=== PATIENT | female | born 1980 | race Caucasian/White ===

== ENCOUNTER 2020-11-16 14:48 | Emergency (ER) | payer OTHER, MEDICARE ==
[~2020-11-16] VITALS: Ht 170.2 cm; Wt 88.6 kg
[2020-11-16 15:08] VITALS: TEMP 96
[2020-11-16 15:37] LABS: BASO # 0.1 (0.0-0.2); BASO % 0.4 % (0.0-2.0); EOS # 0.1 (0.0-0.7); EOS % 0.6 % (0-4.0); GRAN # 13.4 (1.4-6.5); GRAN % 71.1 % (42.2-75.2); HEMATOCRIT 41.6 % (37.0-47.0); LYMPH % 21.1 % (20.0-51.0); MEAN CELL VOLUME 95 fl (80.0-100.0); MEAN CORPUSCULAR HEMOGLOBIN 34 pg (27.0-31.0); MEAN CORPUSCULAR HGB CONC 36 g/dl (33.0-37.0); MEAN PLATELET VOLUME 9.4 fl (7.4-10.4); MONO # 1.2 (0.1-0.6); MONO % 6.1 % (1.7-9.3); PLATELET COUNT 352 K/mm3 (130-400); RED BLOOD COUNT 4.37 M/mm3 (4.10-5.30); REDCELL DISTRIBUTION WIDTH-CV 13.2 % (11.5-14.5)
[2020-11-16 15:49] LABS: ALANINE AMINOTRANSFERASE 29 U/L (4-34); ALBUMIN 4.6 gm/dL (3.5-5.0); ALKALINE PHOSPHATASE 83 U/L (50-136); ANION GAP 12 mmol/L (7-16); AST,SGOT 33 U/L (15-37); BILIRUBIN,TOTAL 1.4 mg/dL (0.0-1.0); BLOOD UREA NITROGEN 11 mg/dL (7-17); CALCIUM 9.9 mg/dL (8.4-10.2); CARBON DIOXIDE 19 mmol/L (22-30); CHLORIDE 107 mmol/L (98-107); CREATININE, serum 0.69 (0.52-1.25); GLUCOSE 141 mg/dL (74-106); POTASSIUM 3.4 mmol/L (3.4-5.0); SODIUM 138 mmol/L (137-145); TOTAL PROTEIN 7.4 gm/dL (6.4-8.2)
[2020-11-16 15:51] LABS: C-REACTIVE PROTEIN < 0.5 mg/dL (0.0-0.9)
[2020-11-16 16:29] LABS: COLLECTION METHOD CLEAN CATCH
[2020-11-16 16:50] LABS: MUCOUS Present /lpf; PH 6 (5-8); URINE APPEARANCE Cloudy; URINE BACTERIA Rare /hpf; URINE BILIRUBIN Negative (NEGATIVE); URINE BLOOD 3+ (NEGATIVE); URINE COLOR Yellow; URINE GLUCOSE Negative (NEGATIVE); URINE KETONE 1+ (NEGATIVE); URINE LEUKOCYTE ESTERASE Negative (NEGATIVE); URINE NITRATE Negative (NEGATIVE); URINE PROTEIN(semi-quant) 1+ (NEGATIVE); URINE RBC >50 /hpf; URINE UROBILINOGEN Negative (NEGATIVE)
[2020-11-16] MEDS ORDERED: ZOFRAN ODT4 MG PO (17:54)
[2020-11-16] MEDS ORDERED: CEFTIN 250250 MG/TAB PO (17:54)
[2020-11-16 18:03] VITALS: BP 108/48; PULSE 83
== END 2020-11-16 18:07 | disposition home or self-care (01) ==
LOC: COL.ER 14:48
PROVIDERS: Emergency Medicine
DX: N20.0 Calculus of kidney (principal); F17.210 Nicotine dependence, cigarettes, uncomplicated; Z88.8 Allergy status to other drugs, medicaments and biological substances
CPT/HCPCS: J0696; J1170; J1885; J2405; J3010; J7030; Q9967

== ENCOUNTER → 2024-02-18 | Outpatient (CLI) | payer MEDICARE, OTHER ==
[~2024-02-18] MED LIST: CEFTIN 250250 MG/TAB PO; ZOFRAN ODT4 MG PO
== END ==
LOC: COL.RAD 13:21
DX: M50.322 Other cervical disc degeneration at C5-C6 level (principal); M40.50 Lordosis, unspecified, site unspecified

== ENCOUNTER 2024-07-23 22:27 | Emergency (ER) | payer MEDICARE, OTHER ==
[~2024-07-23] VITALS: Ht 170.2 cm; Wt 70.5 kg
[2024-07-23] MEDS ORDERED: Acetaminophen 500 MG TAB PO ONE (22:45)
[2024-07-23] MEDS ORDERED: LR 1,000 ML IV ONE (22:45)
[2024-07-23] MEDS ORDERED: cefTRIAXone 2 G in Water For Injection,Sterile 20 ML IV ONE (23:00)
[2024-07-23 23:33] LABS: BASO # 0.1 K/mm3 (0.0-0.2); BASO % 0.3 % (0.0-2.0); EOS # 0.1 K/mm3 (0.0-0.7); EOS % 0.5 % (0.0-4.0); GRAN # 18.7 K/mm3 (1.4-6.5); GRAN % 78.8 % (42.2-75.2); HEMATOCRIT 37.5 % (37.0-47.0); HEMOGLOBIN 12.8 g/dl (12.5-16.0); LYMPH # 2.5 K/mm3 (1.2-3.4); LYMPH % 10.6 % (20.0-51.0); MEAN CELL VOLUME 95 fl (80.0-100.0); MEAN CORPUSCULAR HEMOGLOBIN 32 pg (27-31); MEAN CORPUSCULAR HGB CONC 34 g/dl (33.0-37.0); MEAN PLATELET VOLUME 9.9 fl (7.4-10.4); MONO # 2.2 K/mm3 (0.1-0.6); MONO % 9.3 % (1.7-9.3); PLATELET COUNT 288 K/mm3 (130-400); RED BLOOD COUNT 3.96 M/mm3 (4.10-5.30); REDCELL DISTRIBUTION WIDTH-CV 11.9 % (11.5-14.5)
[2024-07-23] MEDS ORDERED: Ketorolac 15 MG/ML VIAL IV ONE (23:45)
[2024-07-23 23:51] LABS: COLLECTION METHOD CLEAN CATCH
[2024-07-24 00:05] LABS: ALANINE AMINOTRANSFERASE 53 U/L (0-55); ALBUMIN 3.5 g/dL (3.5-5.0); ALKALINE PHOSPHATASE 69 U/L (40-150); ANION GAP 13 mmol/L (7-16); AST,SGOT 44 U/L (5-34); BILIRUBIN,TOTAL 1.5 mg/dL (0.2-1.2); BLOOD UREA NITROGEN 9 mg/dL (7-19); CALCIUM 9.2 mg/dL (8.4-10.2); CHLORIDE 105 mEq/L (98-107); CREATININE, serum 0.72 mg/dL (0.57-1.11); GLUCOSE 126 mg/dL (70-99); POTASSIUM 3.1 mEq/L (3.5-4.5); SODIUM 137 mEq/L (136-145)
[2024-07-24 00:08] LABS: TROPONIN-I < 0.010 ng/mL (0.00-0.033)
[2024-07-24 00:36] LABS: PH 6.5 (5.0-8.5); URINE APPEARANCE CLEAR (CLEAR/HAZY); URINE BLOOD NEGATIVE (NEGATIVE); URINE COLOR YELLOW (YELLOW); URINE GLUCOSE NEGATIVE (NEGATIVE); URINE KETONE NEGATIVE (NEGATIVE); URINE NITRATE NEGATIVE (NEGATIVE); URINE PROTEIN(semi-quant) NEGATIVE (NEGATIVE); URINE UROBILINOGEN 0.2 E.U/dL (0.2-1.0)
[2024-07-24 01:09] VITALS: TEMP 99.4
[2024-07-24] MEDS ORDERED: LR 1,000 ML IV ONE (02:30)
[2024-07-24] MEDS ORDERED: HYDROcodone/Acetaminophen 10-325 MG TAB PO ONE (03:39)
[2024-07-24] MEDS ORDERED: Ondansetron 4 MG/2 ML VIAL IV ONE (04:15)
[2024-07-24 04:31] VITALS: BP 106/70; PULSE 78
== END 2024-07-24 04:34 | disposition short-term general hospital (02) ==
LOC: COL.ER 22:27
PROVIDERS: Emergency Medicine
DX: A41.9 Sepsis, unspecified organism (principal); M54.2 Cervicalgia
CPT/HCPCS: J0696; J1885; J2405; J3370; J7040; J7120